=== PATIENT | male | born 1960 | race Caucasian/White ===

== ENCOUNTER 2016-07-08 14:12 | Inpatient (IN) | payer MEDICAID, OTHER ==
[~2016-07-08] VITALS: Ht 160 cm; Wt 59.6 kg
[2016-07-08 14:44] LABS: EOSINOPHILS % (AUTO) 2.6 % (1.0-6.0); HEMATOCRIT 41.3 % (41-53); HEMOGLOBIN 13.4 g/dL (13.5-17.5); LYMPHOCYTES # (AUTO) 1.4 K/uL (1.0-4.8); LYMPHOCYTES % (AUTO) 19.8 % (22.0-44.0); MEAN CORPUSCULAR HEMOGLOBIN 28.5 pg (26.0-34.0); MEAN CORPUSCULAR HGB CONC 32.5 G/dL (31.0-37.0); MEAN CORPUSCULAR VOLUME 88 fL (80-100); MONOCYTES # (AUTO) 0.4 K/uL (0.1-1.0); NEUTROPHILS # (AUTO) 4.9 K/uL (1.8-7.7); NEUTROPHILS % (AUTO) 70.6 % (40.0-70.0); PLATELET COUNT (AUTO) 261 K/uL (150-450); RED BLOOD CELL COUNT(AUTO) 4.71 MIL/uL (4.50-5.90); RED CELL DISTRIBUTION WIDTH 13.3 % (11.5-14.5)
[2016-07-08 14:53] LABS: ANION GAP 8 mmol/L (8-16); CALCIUM, TOTAL 8.4 mg/dL (8.8-10.5); CARBON DIOXIDE 28 mmol/L (22-29); CHLORIDE 101 mmol/L (98-107); CREATININE 0.83 mg/dL (0.60-1.30); GLOMERULAR FILTR. RATE CALC > 60 mL/min (>60); POTASSIUM 4.1 mmol/L (3.5-5.1); SODIUM SERUM 137 mmol/L (136-145); UREA NITROGEN, BLOOD 11 mg/dL (7-18)
[2016-07-08 14:59] LABS: ALANINE AMINOTRANSFERASE 40 U/L (12-78); ALBUMIN 3.6 g/dL (3.4-5.0); ASPARTATE AMINOTRANSFERASE 24 U/L (15-37); BILIRUBIN,TOTAL 0.3 mg/dL (0.1-1.0); TOTAL PROTEIN, SERUM 7.3 g/dL (6.4-8.2)
[2016-07-08 15:04] LABS: ACETAMINOPHEN < 2 mcg/mL (10-30)
[2016-07-08] MEDS ORDERED: SODIUM CHLORIDE 0.9% 1,000 ML IV ONE ×2 (15:15→16:00)
[2016-07-08] MEDS ORDERED: LORazepam 2 MG/ML VIAL IVP ONE (15:15)
[2016-07-08] MEDS ORDERED: LORazepam 2 MG/ML VIAL IVP PRN (16:00)
[2016-07-08] MEDS ORDERED: ONDANSETRON HCL 4 MG/2 ML VIAL IVP PRN ×2 (16:00→21:15)
[2016-07-08 16:05] LABS: SALICYLATE < 2.8 mg/dL (2.8-20.0)
[2016-07-08] MEDS ORDERED: MAGNESIUM OXIDE 400 MG TABLET PO PRN (21:15)
[2016-07-08] MEDS ORDERED: POTASSIUM CHL 10 MEQ/WATER 50 ML IV PRN (21:15)
[2016-07-08] MEDS ORDERED: POTASSIUM CHLORIDE 20 MEQ ER TABLET PO PRN (21:15)
[2016-07-08] MEDS ORDERED: MAGNESIUM SULFATE 2 GM in DEXTROSE 5%-WATER 50 ML IV PRN (21:15)
[2016-07-08] MEDS ORDERED: MAGNESIUM HYDROXIDE SUSPENSION 30 ML UDCUP PO PRN (21:15)
[2016-07-08] MEDS ORDERED: MAGNESIUM SULFATE 4 GM/WATER 100 ML IV PRN (21:15)
[2016-07-08] MEDS ORDERED: ALBUTEROL SULFATE 2.5 MG/0.5 ML NEB SOLUTION NEB PRN (21:15)
[2016-07-08] MEDS: SODIUM CHLORIDE 0.9% 1,000 ML IV SCH (23:11)
[2016-07-09 07:29] LABS: ALANINE AMINOTRANSFERASE 33 U/L (12-78); ANION GAP 10 mmol/L (8-16); ASPARTATE AMINOTRANSFERASE 25 U/L (15-37); BILIRUBIN,TOTAL 0.5 mg/dL (0.1-1.0); CARBON DIOXIDE 26 mmol/L (22-29); CHLORIDE 106 mmol/L (98-107); CREATININE 0.77 mg/dL (0.60-1.30); GLOMERULAR FILTR. RATE CALC > 60 mL/min (>60); POTASSIUM 3.7 mmol/L (3.5-5.1); SODIUM SERUM 142 mmol/L (136-145); TOTAL PROTEIN, SERUM 6.4 g/dL (6.4-8.2); UREA NITROGEN, BLOOD 8 mg/dL (7-18)
[2016-07-09] MEDS: PANTOPRAZOLE SODIUM 40 MG/VIAL IVP SCH (08:30)
[2016-07-09] MEDS: DOCUSATE SODIUM 100 MG CAPSULE PO SCH ×2 (08:31→20:48)
[2016-07-09 10:28] VITALS: BP 120/72
[2016-07-09 12:37] VITALS: BP 155/86
[2016-07-09] MEDS: SODIUM CHLORIDE 0.9% 1,000 ML IV SCH (13:57)
[2016-07-09 16:07] VITALS: BP 126/97
[2016-07-09 19:37] VITALS: BP 117/78
[2016-07-09 22:47] VITALS: BP 126/76
[2016-07-10] MEDS: SODIUM CHLORIDE 0.9% 1,000 ML IV SCH ×2 (03:25→17:01)
[2016-07-10 05:30] VITALS: BP 132/87
[2016-07-10 07:14] LABS: BASOPHILS # (AUTO) 0.05 K/uL (0.00-0.20); BASOPHILS % (AUTO) 0.8 % (0.0-2.0); EOSINOPHILS # (AUTO) 0.35 K/uL (0.00-0.70); EOSINOPHILS % (AUTO) 6.05 % (1.0-6.0); HEMATOCRIT 40.2 % (41-53); HEMOGLOBIN 13.4 g/dL (13.5-17.5); LYMPHOCYTES # (AUTO) 1.3 K/uL (1.0-4.8); LYMPHOCYTES % (AUTO) 22.6 % (22.0-44.0); MEAN CORPUSCULAR HEMOGLOBIN 29.5 pg (26.0-34.0); MEAN CORPUSCULAR HGB CONC 33.2 G/dL (31.0-37.0); MEAN CORPUSCULAR VOLUME 89 fL (80-100); MONOCYTES # (AUTO) 0.4 K/uL (0.1-1.0); MONOCYTES % (AUTO) 6.6 % (2.0-9.0); NEUTROPHILS # (AUTO) 3.7 K/uL (1.8-7.7); PLATELET COUNT (AUTO) 231 K/uL (150-450); RED BLOOD CELL COUNT(AUTO) 4.53 MIL/uL (4.50-5.90); RED CELL DISTRIBUTION WIDTH 13.9 % (11.5-14.5); WHITE BLOOD COUNT (AUTO) 5.8 K/uL (4.5-11.0)
[2016-07-10 07:35] VITALS: BP 138/99
[2016-07-10 07:38] LABS: ALANINE AMINOTRANSFERASE 29 U/L (12-78); ANION GAP 8 mmol/L (8-16); ASPARTATE AMINOTRANSFERASE 20 U/L (15-37); BILIRUBIN,TOTAL 0.3 mg/dL (0.1-1.0); CALCIUM, TOTAL 8.1 mg/dL (8.8-10.5); CARBON DIOXIDE 27 mmol/L (22-29); CHLORIDE 105 mmol/L (98-107); CREATININE 0.83 mg/dL (0.60-1.30); GLOMERULAR FILTR. RATE CALC > 60 mL/min (>60); POTASSIUM 4.2 mmol/L (3.5-5.1); SODIUM SERUM 140 mmol/L (136-145); TOTAL PROTEIN, SERUM 6.6 g/dL (6.4-8.2); UREA NITROGEN, BLOOD 11 mg/dL (7-18)
[2016-07-10] MEDS: PANTOPRAZOLE SODIUM 40 MG/VIAL IVP SCH (08:02)
[2016-07-10] MEDS: DOCUSATE SODIUM 100 MG CAPSULE PO SCH ×2 (08:03→21:00)
[2016-07-10 11:37] VITALS: BP 123/79
[2016-07-10] MEDS: SERTRALINE HCL 50 MG TABLET PO SCH (12:15)
[2016-07-10 15:20] VITALS: BP 137/83
[2016-07-10 20:00] VITALS: BP 118/90
[2016-07-10] MEDS ORDERED: TraZODone HCL 50 MG TABLET PO SCH (21:00)
[2016-07-10 23:21] VITALS: BP 131/85
[2016-07-11 04:30] VITALS: BP 133/87
[2016-07-11] MEDS: SODIUM CHLORIDE 0.9% 1,000 ML IV SCH (06:26)
[2016-07-11 07:33] LABS: BASOPHILS % (AUTO) 0.8 % (0.0-2.0); EOSINOPHILS % (AUTO) 6.2 % (1.0-6.0); HEMATOCRIT 40.5 % (41-53); HEMOGLOBIN 13.4 g/dL (13.5-17.5); LYMPHOCYTES # (AUTO) 1.6 K/uL (1.0-4.8); LYMPHOCYTES % (AUTO) 28.2 % (22.0-44.0); MEAN CORPUSCULAR HEMOGLOBIN 29.1 pg (26.0-34.0); MEAN CORPUSCULAR HGB CONC 32.9 G/dL (31.0-37.0); MEAN CORPUSCULAR VOLUME 88 fL (80-100); MONOCYTES # (AUTO) 0.6 K/uL (0.1-1.0); MONOCYTES % (AUTO) 10.1 % (2.0-9.0); NEUTROPHILS # (AUTO) 3.2 K/uL (1.8-7.7); NEUTROPHILS % (AUTO) 54.7 % (40.0-70.0); PLATELET COUNT (AUTO) 230 K/uL (150-450); RED BLOOD CELL COUNT(AUTO) 4.59 MIL/uL (4.50-5.90); RED CELL DISTRIBUTION WIDTH 13.6 % (11.5-14.5); WHITE BLOOD COUNT (AUTO) 5.8 K/uL (4.5-11.0)
[2016-07-11 07:46] VITALS: BP 131/78
[2016-07-11 07:52] LABS: ANION GAP 6 mmol/L (8-16); CALCIUM, TOTAL 8.3 mg/dL (8.8-10.5); CARBON DIOXIDE 28 mmol/L (22-29); CHLORIDE 105 mmol/L (98-107); CREATININE 0.79 mg/dL (0.60-1.30); GLOMERULAR FILTR. RATE CALC > 60 mL/min (>60); POTASSIUM 4.1 mmol/L (3.5-5.1); SODIUM SERUM 139 mmol/L (136-145); UREA NITROGEN, BLOOD 17 mg/dL (7-18)
[2016-07-11] MEDS: PANTOPRAZOLE SODIUM 40 MG/VIAL IVP SCH (08:19)
[2016-07-11] MEDS: DOCUSATE SODIUM 100 MG CAPSULE PO SCH (08:20)
[2016-07-11] MEDS: SERTRALINE HCL 50 MG TABLET PO SCH (08:20)
[2016-07-11 11:33] VITALS: BP 133/84
[2016-07-11] MEDS ORDERED: CARBAMIDE PEROXIDE 6.5% 15 ML OTIC SOLUTION AD SCH (12:00)
[2016-07-11] MEDS ORDERED: SERT50TA12 PO (14:08)
[2016-07-11] MEDS ORDERED: TRAZ-144 PO (14:09)
== END 2016-07-11 14:15 | disposition home or self-care (01) | DRG 812 ==
LOC: EMS 14:13 → EEVIPCON 14:13 → ICU 07-09 04:18 → 5S 07-09 09:34
PROVIDERS: ADMIT Internal Medicine; ATTEND Internal Medicine
DX: T43.012A Poisoning by tricyclic antidepressants, intentional self-harm, initial encounter (principal); G92 Toxic encephalopathy; F33.2 Major depressive disorder, recurrent severe without psychotic features; R45.851 Suicidal ideations; F99 Mental disorder, not otherwise specified; F12.90 Cannabis use, unspecified, uncomplicated; F17.210 Nicotine dependence, cigarettes, uncomplicated; R45.850 Homicidal ideations; Z53.29 Procedure and treatment not carried out because of patient's decision for other reasons; X58.XXXA Exposure to other specified factors, initial encounter; Y93.89 Activity, other specified; Z78.1 Physical restraint status; Y92.89 Other specified places as the place of occurrence of the external cause; Z91.5 Personal history of self-harm; Y99.8 Other external cause status; Z71.51 Drug abuse counseling and surveillance of drug abuser; Z71.6 Tobacco abuse counseling
CPT/HCPCS: 83735; 93005; 96361; 96374; 99291; C9113; G0480; G0481; J2060; J7030

== ENCOUNTER 2016-10-10 19:58 | Inpatient (IN) | payer MEDICAID, OTHER ==
[~2016-10-10] VITALS: Ht 160 cm; Wt 57.3 kg
[~2016-10-10 19:58] MED LIST: SERT50TA12 PO; TRAZ-144 PO
[2016-10-10] MEDS ORDERED: HALOPERIDOL 5 MG TABLET PO PRN (21:00)
[2016-10-10 21:25] VITALS: BP 132/83
[2016-10-10] MEDS: TraZODone HCL 50 MG TABLET PO SCH (21:28)
[2016-10-10] MEDS: LORazepam 2 MG TABLET PO PRN (21:29)
[2016-10-10] MEDS: ZOLPIDEM TARTRATE 10 MG TABLET PO PRN (22:16)
[2016-10-10] MEDS ORDERED: IBUPROFEN 600 MG TABLET PO PRN (22:30)
[2016-10-11 00:05] VITALS: BP 117/90
[2016-10-11 08:06] VITALS: BP 106/76
[2016-10-11 08:08] LABS: BASOPHILS % (AUTO) 0.8 % (0.0-2.0); EOSINOPHILS % (AUTO) 9.5 % (1.0-6.0); HEMATOCRIT 37.6 % (41-53); LYMPHOCYTES # (AUTO) 1.8 K/uL (1.0-4.8); LYMPHOCYTES % (AUTO) 32.1 % (22.0-44.0); MEAN CORPUSCULAR HGB CONC 34.6 G/dL (31.0-37.0); MEAN CORPUSCULAR VOLUME 87 fL (80-100); MONOCYTES # (AUTO) 0.6 K/uL (0.1-1.0); NEUTROPHILS # (AUTO) 2.7 K/uL (1.8-7.7); NEUTROPHILS % (AUTO) 46.6 % (40.0-70.0); PLATELET COUNT (AUTO) 302 K/uL (150-450); RED BLOOD CELL COUNT(AUTO) 4.33 MIL/uL (4.50-5.90); RED CELL DISTRIBUTION WIDTH 13.9 % (11.5-14.5); WHITE BLOOD COUNT (AUTO) 5.7 K/uL (4.5-11.0)
[2016-10-11] MEDS: SERTRALINE HCL 50 MG TABLET PO SCH (08:17)
[2016-10-11 08:41] LABS: ALANINE AMINOTRANSFERASE 32 U/L (12-78); ALBUMIN 3.5 g/dL (3.4-5.0); ANION GAP 9 mmol/L (8-16); ASPARTATE AMINOTRANSFERASE 26 U/L (15-37); BILIRUBIN,TOTAL 0.4 mg/dL (0.1-1.0); CARBON DIOXIDE 29 mmol/L (22-29); CHLORIDE 101 mmol/L (98-107); CHOL/HDL RATIO 2.2 (4.2-7.3); CREATININE 0.89 mg/dL (0.60-1.30); GLOMERULAR FILTR. RATE CALC > 60 mL/min (>60); POTASSIUM 4.2 mmol/L (3.5-5.1); SODIUM SERUM 139 mmol/L (136-145); TOTAL PROTEIN, SERUM 7.2 g/dL (6.4-8.2); UREA NITROGEN, BLOOD 17 mg/dL (7-18)
[2016-10-11] MEDS ORDERED: NICOTINE 14 MG/24 HOUR PATCH TD SCH (09:00)
[2016-10-11] MEDS ORDERED: CloNIDine HCL 0.1 MG TABLET PO PRN (09:15)
[2016-10-11] MEDS ORDERED: MAG HYDROX/AL HYDROX/SIMETH ES 30 ML SUSPENSION UDCUP PO PRN (09:15)
[2016-10-11] MEDS ORDERED: BACITRACIN 28.4 GM OINTMENT TP PRN (09:15)
[2016-10-11] MEDS ORDERED: ALBUTEROL SULFATE HFA 90 MCG/PUFF 8 GM INHALER IH PRN (09:15)
[2016-10-11] MEDS ORDERED: LOPERAMIDE HCL 2 MG CAPSULE PO PRN (09:15)
[2016-10-11] MEDS ORDERED: PETROLATUM,WHITE 71 GM JELLY TP PRN (09:15)
[2016-10-11] MEDS ORDERED: ONDANSETRON HCL 4 MG TABLET PO PRN (09:15)
[2016-10-11] MEDS ORDERED: BENZOCAINE/MENTHOL LOZENGE MM PRN (09:15)
[2016-10-11] MEDS ORDERED: ACETAMINOPHEN 325 MG TABLET PO PRN (09:15)
[2016-10-11] MEDS ORDERED: MAGNESIUM HYDROXIDE SUSPENSION 30 ML UDCUP PO PRN (09:15)
[2016-10-11 09:48] LABS: GLUCOSE, URINE (UA) NEGATIVE (NEGATIVE); KETONES,URINE NEGATIVE (NEGATIVE); LEUKOCYTE ESTERASE ,URINE NEGATIVE (NEGATIVE); OCCULT BLOOD,URINE NEGATIVE (NEGATIVE); PROTEIN,URINE NEGATIVE (NEGATIVE)
[2016-10-11 09:58] LABS: ADD UA MICROSCOPIC NO; APPEARANCE,URINE CLEAR (CLEAR)
[2016-10-11] MEDS: LORazepam 2 MG TABLET PO PRN (15:45)
[2016-10-11 16:16] VITALS: BP 116/76
[2016-10-11] MEDS: TraZODone HCL 50 MG TABLET PO SCH (20:08)
[2016-10-12 08:05] VITALS: BP 122/90
[2016-10-12] MEDS: SERTRALINE HCL 50 MG TABLET PO SCH (08:20)
[2016-10-12] MEDS: NICOTINE 21 MG/24 HOUR PATCH TD SCH (08:20)
[2016-10-12] MEDS: IBUPROFEN 600 MG TABLET PO PRN (08:20)
[2016-10-12 09:20] VITALS: BP 120/85
[2016-10-12] MEDS: LORazepam 2 MG TABLET PO PRN ×2 (11:23→15:47)
[2016-10-12] MEDS ORDERED: TraMADol HCL 50 MG TABLET PO PRN (12:00)
[2016-10-12 16:03] VITALS: BP 118/85
[2016-10-12] MEDS: ACYCLOVIR 200 MG CAPSULE PO SCH (17:13)
[2016-10-12] MEDS: TraZODone HCL 50 MG TABLET PO SCH (20:40)
[2016-10-12] MEDS: ZOLPIDEM TARTRATE 10 MG TABLET PO PRN (20:40)
[2016-10-13 06:13] VITALS: BP 121/73
[2016-10-13] MEDS: ACYCLOVIR 200 MG CAPSULE PO SCH ×2 (08:05→16:48)
[2016-10-13] MEDS: SERTRALINE HCL 50 MG TABLET PO SCH (08:05)
[2016-10-13] MEDS: NICOTINE 21 MG/24 HOUR PATCH TD SCH (08:05)
[2016-10-13] MEDS: LORazepam 2 MG TABLET PO PRN ×2 (08:09→17:14)
[2016-10-13 08:19] VITALS: BP 113/81
[2016-10-13 16:00] VITALS: BP 130/90
[2016-10-13] MEDS: IBUPROFEN 600 MG TABLET PO PRN (16:45)
[2016-10-13] MEDS: TraZODone HCL 50 MG TABLET PO SCH (20:57)
[2016-10-13] MEDS: ZOLPIDEM TARTRATE 10 MG TABLET PO PRN (22:14)
[2016-10-14 06:18] VITALS: BP 139/79
[2016-10-14 08:13] VITALS: BP 127/69
[2016-10-14] MEDS: SERTRALINE HCL 50 MG TABLET PO SCH (08:31)
[2016-10-14] MEDS: ACYCLOVIR 200 MG CAPSULE PO SCH ×2 (08:31→17:05)
[2016-10-14] MEDS: NICOTINE 21 MG/24 HOUR PATCH TD SCH (08:31)
[2016-10-14] MEDS: LORazepam 2 MG TABLET PO PRN ×2 (10:13→18:04)
[2016-10-14] MEDS: IBUPROFEN 600 MG TABLET PO PRN (13:04)
[2016-10-14 13:05] VITALS: BP 138/81
[2016-10-14 16:29] VITALS: BP 134/74
[2016-10-14] MEDS: TraZODone HCL 50 MG TABLET PO SCH (20:15)
[2016-10-14] MEDS: ZOLPIDEM TARTRATE 10 MG TABLET PO PRN (20:15)
[2016-10-15 07:12] VITALS: BP 140/78
[2016-10-15 08:13] VITALS: BP 139/76
[2016-10-15] MEDS: ACYCLOVIR 200 MG CAPSULE PO SCH ×3 (08:32→16:44)
[2016-10-15] MEDS: SERTRALINE HCL 50 MG TABLET PO SCH (08:32)
[2016-10-15] MEDS: NICOTINE 21 MG/24 HOUR PATCH TD SCH (08:32)
[2016-10-15] MEDS: IBUPROFEN 600 MG TABLET PO PRN ×2 (09:26→17:54)
[2016-10-15] MEDS: LORazepam 2 MG TABLET PO PRN ×2 (09:26→17:54)
[2016-10-15 16:16] VITALS: BP 134/77
[2016-10-15 17:54] VITALS: BP 126/80
[2016-10-15] MEDS ORDERED: TraZODone HCL 50 MG TABLET PO SCH (21:00)
[2016-10-16 06:14] VITALS: BP 120/83
[2016-10-16] MEDS: SERTRALINE HCL 50 MG TABLET PO SCH (08:43)
[2016-10-16] MEDS: NICOTINE 21 MG/24 HOUR PATCH TD SCH (08:43)
[2016-10-16] MEDS: ACYCLOVIR 200 MG CAPSULE PO SCH ×2 (08:44→16:17)
[2016-10-16 09:22] VITALS: BP 127/77
[2016-10-16] MEDS: IBUPROFEN 600 MG TABLET PO PRN ×2 (09:22→21:36)
[2016-10-16] MEDS: LORazepam 2 MG TABLET PO PRN ×3 (11:18→20:32)
[2016-10-16] MEDS ORDERED: ZOLPIDEM TARTRATE 10 MG TABLET PO PRN (13:45)
[2016-10-16 16:15] VITALS: BP 132/89
[2016-10-16 21:36] VITALS: BP 137/88
[2016-10-17] MEDS ORDERED: ACYC200C PO (08:31)
[2016-10-17 08:41] VITALS: BP 125/90
[2016-10-17] MEDS: SERTRALINE HCL 50 MG TABLET PO SCH (09:09)
[2016-10-17] MEDS: NICOTINE 21 MG/24 HOUR PATCH TD SCH (09:10)
[2016-10-17] MEDS: ACYCLOVIR 200 MG CAPSULE PO SCH (09:10)
== END 2016-10-17 10:05 | disposition home or self-care (01) | DRG 751 ==
LOC: B2S 20:50 → EDSTATUS 21:15 → B2S 10-11 07:37
DX: F33.2 Major depressive disorder, recurrent severe without psychotic features (principal); R45.851 Suicidal ideations; R73.9 Hyperglycemia, unspecified; G47.00 Insomnia, unspecified; F17.210 Nicotine dependence, cigarettes, uncomplicated; F15.10 Other stimulant abuse, uncomplicated; F12.90 Cannabis use, unspecified, uncomplicated; S82.891A Other fracture of right lower leg, initial encounter for closed fracture; Y93.51 Activity, roller skating (inline) and skateboarding; V00.131A Fall from skateboard, initial encounter; Z59.0 Homelessness; M25.571 Pain in right ankle and joints of right foot; Z71.51 Drug abuse counseling and surveillance of drug abuser; Z71.6 Tobacco abuse counseling; Z56.0 Unemployment, unspecified
CPT/HCPCS: 83036; 84439; 84443

== ENCOUNTER 2023-02-21 23:30 | Emergency (ER) | payer MEDICAID, OTHER ==
[~2023-02-21] VITALS: Ht 154.9 cm; Wt 75.0 kg
[~2023-02-21 23:30] MED LIST changes: +ACYC-138 PO; +DIVA500T53 PO; +SERT-158 PO; -SERT50TA12 PO; -TRAZ-144 PO
[2023-02-21 23:39] VITALS: TEMP 98.3
[2023-02-22] MEDS ORDERED: LORazepam 2 MG TABLET PO ONE (00:30)
[2023-02-22] MEDS ORDERED: HALOPERIDOL 5 MG TABLET PO ONE (00:30)
[2023-02-22 01:46] LABS: COVID AG,FIA SOURCE NASAL SWAB; SARS-COV2 (COVID) ANTIGEN,FIA Negative (Negative)
[2023-02-22 04:29] VITALS: BP 137/59; PULSE 87; RESP 20
== END 2023-02-22 06:45 | disposition home or self-care (01) ==
LOC: EMS 23:30
DX: F69 Unspecified disorder of adult personality and behavior (principal); F32.A Depression, unspecified; J02.8 Acute pharyngitis due to other specified organisms; F12.90 Cannabis use, unspecified, uncomplicated; Z98.890 Other specified postprocedural states; Z20.822 Contact with and (suspected) exposure to COVID-19
CPT/HCPCS: 87430; 99284; Z7502; Z7610